=== PATIENT | female | born 1950 | race Caucasian/White ===

== ENCOUNTER → 2024-03-31 06:52 | Day surgery (SDC) | payer MEDICARE, OTHER, SELFPAY | LOC: CATH 06:52 | PROVIDERS: ATTENDING PHYSICIAN Internal Medicine; FAMILY PHYSICIAN Family Medicine; OTHER PHYSICIAN Internal Medicine Cardiovascular Disease | DX: I48.91 Unspecified atrial fibrillation (principal); Z53.09 Procedure and treatment not carried out because of other contraindication; I45.2 Bifascicular block; K21.9 Gastro-esophageal reflux disease without esophagitis; Z79.01 Long term (current) use of anticoagulants | CPT/HCPCS: 93005 ==

== ENCOUNTER → 2024-09-24 13:04 | Outpatient (REF) | payer MEDICARE, OTHER, SELFPAY | LOC: RCS 13:04 | PROVIDERS: ATTENDING PHYSICIAN Nurse Practitioner; FAMILY PHYSICIAN Family Medicine | DX: I48.0 Paroxysmal atrial fibrillation (principal); R60.0 Localized edema | CPT/HCPCS: 93306 ==

== ENCOUNTER 2024-09-30 06:03 | Day surgery (SDC) | payer MEDICARE, OTHER, SELFPAY ==
[2024-09-14 09:55] VITALS: BMI 33.5
--- NOTE | 2024-09-14 12:46 | W.PN.UPDATE ---
Update Note
Progress Note Update
PT elevated 19.7
on Xarelto
[2024-09-30] VITALS (14 sets, daily range): BP systolic 111–147; BP diastolic 61–84
[2024-09-30] MEDS: TYLENOL 1000 MG PO (07:00)
[2024-09-30 08:50] LABS: ACT-LR - POC 329 Seconds (116-155)
[2024-09-30 09:05] LABS: ACT-LR - POC 239 Seconds (116-155)
--- NOTE | 2024-09-30 10:00 | ITS.CL.ABL ---
Stenciler - Ablation
Ablation
Procedure Report:
ELECTROPHYSIOLOGY ABLATION STUDY
DATE:: September 30, 2024�����������������������REFERRING: Dr. Dr. Wily Purvis
INDICATION: Paroxysmal supraventricular tachycardia in the form of atrial fibrillation.��Some tracings also suggest right atrial flutter which had been persistent in the past although she presented in sinus rhythm with competing junctional
bradycardia today.
HISTORY: See H and P.��As above
ANTIARRHYTHMIC DRUG: History of Multaq use which was ineffective recently we have increased her Cardizem to 300 mg daily
PRE-PROCEDURE HERMINIO: No thrombus on intracardiac ultrasound
PRESENTING RHYTHM: Sinus bradycardia�junctional bradycardia
'TIME-OUT':��called and confirmed.
SEDATION/ANESTHESIA:��provided via the anesthesia department using general anesthesia (LMA).
INTRAVENOUS/ARTERIAL ACCESS:
Right femoral venous - 8Fr upgraded to fair drive sheath and ultimately upgraded to an 18 Luxembourgish short sheath to accommodate the 10 Luxembourgish steerable sheath for the CTI flutter
Left femoral venous - 8 Fr, 6 Fr
Ultrasound guidance for bilateral femoral vein access was utilized by me to obtain access with demonstration of normal anatomy
CHADS-VASC Score:
HAS-Bled Score
PROCEDURE:
1.��A decapolar CS catheter was placed within the CS for mapping and pacing.��This was also used as the reference catheter for the 3-D map. At the end of the procedure we performed CTI flutter with irrigated radiofrequency catheter tactic cath. At
30 W, 42 degrees and 15 to 20-second lesions under intracardiac ultrasound guidance at a 10 to 15 g force from the tricuspid valve back towards the IVC block was brought about at the back of the isthmus on the septal aspect with wide split doubles
and intra isthmus conduction time of 190 ms. This was performed after left atrial access and ablation as below.
2. The intracardiac ultrasound catheter was positioned in the RA to identify the FO for targeting of transseptal puncture, assist��in identification of the pulmonary vein ostia, monitoring pre and post ablation pulmonary vein flow velocities,
monitoring for 'bubble' formation during RF application as a sign of thermal injury,��and to monitor for pericardial effusion during mapping and ablation procedure.���Left atrial size, LV ejection fraction, and pulmonary vein flows were monitored
pre and post ablation procedure. The other valves were inspected and found to be free of significant regurgitation or stenosis. No pericardial effusion was seen pre and post procedure. Mild to moderate tricuspid regurgitation was noted which was
also noted on her echocardiogram last week.
3.��Half of the calculated heparin bolus was administered prior to the first transeptal puncture.��Transseptal puncture was performed to diagnose RA and LA pressure so that safety of LA mapping and ablation could be further assessed, and to access
the left atrium and pulmonary veins for mapping and ablation.��This entailed advancing an 18 Luxembourgish wire, sheath with dilator into the superior vena cava and withdrawing both (monitoring intracardiac ultrasound, fluoroscopy and tip pressure) with
the tip oriented toward the atrial septum.��The fossa ovalis was engaged (indicated by sudden displacement of the sheath tip as well as tenting of the fossa seen on intracardiac ultrasound).��Left atrial access required a pass with the [place]
needle extended.��Left atrial catheter position was confirmed by pressure monitoring (RA mean pressure 8 mm Hg and LA mean presure 14 mm Hg), LA saturation (99%),��as well as fluoroscopy.��The sheath was advanced over the dilator and positioned in
the left atrium.��This procedure was repeated for the Agilis sheath.��The remainder of the calculated heparin bolus was administered and heparin was
infused to maintain ACT at 300 -350 seconds throughout the case.
4.��RA pacing was performed via the proximal decapolar poles and LA pacing was performed via the distal decapolr poles.
5. A quadrapolar catheter was first positioned at the His position for His Bundle recording which was tagged via the 3-D Navex sytem, and then passed to the RVA for RV pacing and recording.
6. The ablation catheter was positioned through one of the transeptal seaths and a 20 pole ring mapping catheter was positioned through the second seath into the LA and then the ostia of the LIPV, LSPV, RSPV and the RIPV.��
7.��Next, a 3-D map was created using Navex.���A 3-D reconstructed CT image was compared to the 3-D Navex map to assist in anatomic interpretation, mapping and ablation.��The CT image and the NavX image were fused.
8. A total of 40 lesions were given in basket, all of and flower mode. The pulmonary veins were isolated at baseline. There was some signal on the posterior wall adi junction of the left veins. As such all of poses were given to the distal
adi of the left superior pulmonary vein and left inferior pulmonary vein. Otherwise the roof posterior wall floor and interatrial septum were addressed via flower pose. This rendered a wide area of isolation on the roof posterior wall floor
with some signal at the mitral valve annulus and we also recorded signal in the left atrial appendage at the end of procedure. We then performed atrial burst pacing down to 270 ms which was left atrial refractoriness inducing atrial fibrillation at
270 ms which did not organize and was cardioverted. Repeat conduction did not induce any other tachyarrhythmia. Given clinical ECG suggesting the possibility of CTI flutter we also performed CTI flutter ablation at the end of the procedure with a
4 mm radiofrequency catheter. The patient's right atrium was relatively small and we were unable to engage the isthmus directly in flower pose.
9. The patient had notable junctional bradycardia throughout the entirety of the procedure with occasional sinus beats. Of note she had recent increase in her Cardizem which we will lower post procedure. She had normal HV interval and was able to
conduct to the ventricle with right atrial pacing at less than 400 ms.
TOTAL FLOURO TIME: 21 minutes
TOTAL RF DURATION: 8 minutes
REVERSAL OF HEPARIN: 40 mg of protamine, slow IV administration
COMPLICATIONS:
None
Intracardiac US shows no pericardial effusion post ablation.
SUMMARY:��
Complex left atrial mapping and ablation.
Adi lesions were given to the left pulmonary veins and all of pose. Roof posterior wall and floor of the left atrium addressed in flower pose with isolation of all the structures. Additional substrate modified in the interatrial septum. CTI
flutter ablation with bidirectional block intra isthmus conduction time 190 ms which was performed with radiofrequency energy given small right atrial size
RECOMMENDATIONS:
1. Ambulate in 4 hours
2. Resume anticoagulation
3.��Lower diltiazem to 120 mg daily
4.��Consider same-day discharge
Copy to: Dr. Wily Purvis
[2024-09-30] MEDS: ANESTHETIC LOZENGE 1 LOZENGE PO (11:10)
--- NOTE | 2024-09-30 11:32 | PTCARENOTE ---
Patient states she has double vision. SALES FORCE DEVELOPER aware. Neuro check normal. VSS. By the time the SALES FORCE DEVELOPER was done assessing patient she stated her double vision went away. Will continue to monitor and patient aware to let us know if anything changes.
--- NOTE | 2024-09-30 14:26 | W.PN.UPDATE ---
Update Note
Progress Note Update
Pt seen post PFA. Bilat groin sites without ht/bleeding. OOB ambulating. Post EKG SB 55, no acute changes. Resume eliquis tonight at usual time. Bradycardia noted- will hold diltiazem tonight and resume tomorrow at decreased dose of 120mg daily.
Complained of double vision in the first hour after procedure, but no other neuro deficits. Neuro exam unremarkable. The double vision was self limiting and has not returned. She is oob now with steady gait. Followup at [facility] arranged and with
Yaniv thereafter. Home today if groin sites/tele remain stable.
== END 2024-09-30 15:00 | disposition home or self-care (01) ==
LOC: CATH 06:03
PROVIDERS: ATTENDING PHYSICIAN Internal Medicine Cardiovascular Disease; FAMILY PHYSICIAN Family Medicine; OTHER PHYSICIAN Internal Medicine Cardiovascular Disease
DX: I48.0 Paroxysmal atrial fibrillation (principal); I48.92 Unspecified atrial flutter; I10 Essential (primary) hypertension; F32.A Depression, unspecified; F41.9 Anxiety disorder, unspecified; G47.33 Obstructive sleep apnea (adult) (pediatric); Z79.899 Other long term (current) drug therapy; Z88.0 Allergy status to penicillin; Z79.01 Long term (current) use of anticoagulants
CPT/HCPCS: C1732; C1894; C2630; C1892; C1759; C1730; 76937; 85347; 93005; 93655; 93656; 93657; C1733; C1766

== ENCOUNTER 2025-02-15 10:23 | Day surgery (SDC) | payer MEDICARE, OTHER, SELFPAY ==
--- NOTE | 2025-02-15 12:10 | ITS.CL.CARDI ---
Handy Worker - Cardioversion
Cardioversion
Procedure Report:
Date of Procedure: February 15 2025
Procedure: Cardioversion
Indication: Symptomatic atrial flutter
Performing Physician: Demarco Thomas DO, FACC
Technique: The patient was brought to the holding area. Signed informed consent was obtained. A time out was called and performed. The patient was anesthetized by the anesthesia service. Anticoagulation status was reviewed and appropriate. R2 pads
were placed anteriorly and posteriorly. A 200 J synchronized biphasic shock restored normal sinus rhythm with short pause and sinus bradycardia. There were no complications.
Conclusion: Uncomplicated cardioversion from atrial flutter to sinus rhythm.
Recommendation: Routine post cardioversion care. Continue skilled nursing anticoagulation.
== END 2025-02-15 12:29 | disposition home or self-care (01) ==
LOC: CATH 10:23
PROVIDERS: ATTENDING PHYSICIAN Nuclear Medicine Nuclear Cardiology; FAMILY PHYSICIAN Family Medicine; REFERRING PHYSICIAN Internal Medicine Cardiovascular Disease
DX: I48.92 Unspecified atrial flutter (principal); I48.0 Paroxysmal atrial fibrillation; I45.10 Unspecified right bundle-branch block; I10 Essential (primary) hypertension; E78.00 Pure hypercholesterolemia, unspecified; G47.33 Obstructive sleep apnea (adult) (pediatric); R60.0 Localized edema; Z82.49 Family history of ischemic heart disease and other diseases of the circulatory system; Z79.01 Long term (current) use of anticoagulants
CPT/HCPCS: 92960; 93005

== ENCOUNTER 2025-05-12 07:22 | Day surgery (SDC) | payer MEDICARE, OTHER, SELFPAY ==
[2025-05-12] MEDS: ELIQUIS 5 MG PO (10:45)
--- NOTE | 2025-05-12 11:23 | ITS.CL.CARDI ---
Tow Operator - Cardioversion
Cardioversion
Procedure Report:
Date of Procedure: 05/12/2023.
Procedure: Cardioversion.
Indication: Symptomatic persistent atrial flutter
Performing Physician: Beverley Moreau MD
Technique: The patient was brought to the holding area. Signed informed consent was obtained. A time out was called and performed. The patient was sedated by a member of the anesthesia service. Anticoagulation status was reviewed. Given she was
taking her Eliquis incorrectly for several day at only once a day, HERMINIO was done to rule out evidence of LA/JOSE/RA and RAA. R-2 pads were placed anteriorly and posteriorly. A 200J synchronized biphasic shock restored normal sinus rhythm without
significant bradycardia. There were no complications.
Conclusion: Uncomplicated cardioversion from atrial flutter to sinus rhythm.
Recommendation: Routine post cardioversion care. Continue nursing home anticoagulation. Reviewed with the patient and her family the correct dosing of Eliquis is 5 mg p.o. twice a day.
cc: Dr Purvis
== END 2025-05-12 11:11 | disposition home or self-care (01) ==
LOC: CATH 07:22
PROVIDERS: ATTENDING PHYSICIAN Internal Medicine Cardiovascular Disease; FAMILY PHYSICIAN Family Medicine
DX: I48.19 Other persistent atrial fibrillation (principal); Z79.01 Long term (current) use of anticoagulants; I08.1 Rheumatic disorders of both mitral and tricuspid valves; I48.92 Unspecified atrial flutter; G47.33 Obstructive sleep apnea (adult) (pediatric)
CPT/HCPCS: 93312; 93320; 93325; 92960; 93005

== ENCOUNTER 2025-06-07 07:58 | Inpatient (IN) | payer MEDICARE, OTHER, SELFPAY ==
[2025-06-07 08:35] VITALS: BMI 33.9
[2025-06-07 08:52] LABS: Hematocrit 42.7 % (37.0-47.0); Hemoglobin 14.5 g/dL (12.0-16.0); Mean Corp Hgb Conc. 34.0 g/dL (33.0-37.0); Mean Corpuscular Volume 93.2 fL (81.0-99.0); Platelet Count 277 10^3/uL (130-400); Red Cell Dist. Width 13.4 % (11.5-14.5)
[2025-06-07 09:21] VITALS: BMI 33.9
--- NOTE | 2025-06-07 09:23 | PTCARENOTE ---
Pt received as a direct admit for Tikosyn loading. Pt in atrial tach, rate in the 100'2 to 120's. Room air , sat 99%. Denies any pain, sob or palpitations at this time. Pt states she occasionally feels palpitations.
[2025-06-07 10:25] LABS: TSH 1.77 uIU/ml (0.47-4.68)
--- NOTE | 2025-06-07 10:29 | W.PN.CARDCBS ---
Addendum entered and electronically signed by Osiel Ricci MD 06/07/25 12:18:
I saw and examined the patient.
The SCOURING MACHINE TENDER or PA's note was reviewed and I agree with the note.
Comment: General: Well developed, well nourished in NAD.
Neck: Supple, no JVD, HJR, carotids +2 B/L, no bruits bilaterally.
Heart: Non displaced PMI, regular, tachycardic, no murmurs, No S3, S4, no rubs.
Lungs: Clear to auscultation bilaterally, no wheeze, rhonchi, rubs bilaterally,
normal expiratory phase.
Abdomen: Normal bowel sounds, soft, non-tender, non-distended.
Extremities: No clubbing, cyanosis or edema bilaterally.
Neuro: Grossly nonfocal, awake, alert and oriented x3.
Jennifer has a history of A-fib status post PVI who presents for Tikosyn initiation. She also has a history of hypertension, hypercholesterolemia, sleep apnea. She is in atrial tachycardia present. Will load with Tikosyn. If remains in atrial
tachycardia we will plan on cardioversion on 06/09. Discussed with patient and in detail as well as nursing.
Original Note:
Today's Communication / Plan
-
Start Tikosyn 250 mcg twice daily
QTc monitoring
Impression / Plan
-
PCP: Brayan Mitchell
Primary debubblizer: Wily Purvis
Primary guidance services coordinator: Bridger Cevallos MD
See cardiology office note from 05/26/2025 for full history
Impression:
Atypical atrial flutter
- Status post PVI cryo 11/2012
- Status post PVI/LA PW isolation with PFA/CTI flutter with RF 09/30/2024
- Previously on sotalol, developed rash
- Previously on Multaq, started 2021, stopped 05/26/2025
- Status post HERMINIO/cardioversion 05/12/2025
- Anticoagulated with Eliquis 5 mg twice daily, no missed doses
Hypertension
Chronic anticoagulation
Hypercholesterolemia sleep apnea
Vertigo
Obstructive sleep apnea, intolerant of CPAP mask
Mucous membrane pemphigoid
Previous cardiovascular studies:
HERMINIO 05/12/2025: Normal biventricular size and systolic function without regional wall motion abnormalities, EF 60 to 65%, no significant valvular heart disease, no evidence of spontaneous echo contrast or thrombus in the JOSE/JOSE/right atrium or
right atrial appendage
Plan:
Atypical atrial flutter
-Previously on Multaq, stopped 05/26/2025
-Presents for Tikosyn loading with plan to use 250 mcg twice daily dosing
-calc creat clearance 116.4
-K 4.4, Mag 2.2
-baseline QTc 513 msec, in setting of RBBB and atrial tachycardia. Starting pt on lower dose of Tikosyn at 250 mcg bid (per creat clearance should be on 500 mcg bid) with close QTc monitoring.
-Has been on diltiazem 120 mg twice daily and home setting. Will reduce to once a day with initiation of Tikosyn
-Continue uninterrupted oral anticoagulation with Eliquis 5 mg twice daily
-daily labs
Progress Note - Creative Services Specialist
Subjective
Date of Service: June 07, 2025
Presents for initiation of Tikosyn for atypical atrial flutter
Complains of palpitations and fatigue with aflutter
Objective
Labs:
06/07/25 08:38
Labs
Hgb 14.5 g/dL (12.0-16.0) 06/07/25 08:38
Hct 42.7 % (37.0-47.0) 06/07/25 08:38
Plt Count 277 10^3/uL (130-400) 06/07/25 08:38
Sodium Cancelled 06/07/25 08:38
Potassium Cancelled 06/07/25 08:38
BUN Cancelled 06/07/25 08:38
Creatinine Cancelled 06/07/25 08:38
Glucose Cancelled 06/07/25 08:38
Vital Signs and I&O:
Vital Signs
Temp Pulse Resp Pulse Ox
98.3 F 119 18 99
06/07/25 08:34 06/07/25 08:34 06/07/25 08:34 06/07/25 08:34
Vital Signs
Temp Pulse Resp Pulse Ox
98.3 F 119 18 99
06/07/25 08:34 06/07/25 08:34 06/07/25 08:34 06/07/25 08:34
Physical Exam
Physical Exam
GEN: No distress, awake, Ox3
HEENT: supple, anicteric, mmm
LUNGS: CTA, no wheezes/rales
CV: Tachycardic, regular, no murmur
ABD: soft, BS+, NT/ND
EXT: No edema
NEURO: Gross non-focal
SKIN: No rash
[2025-06-07 11:18] LABS: ALT (SGPT) 20 U/L (0-35); AST (SGOT) 27 U/L (14-36); Albumin 4.3 g/dl (3.5-5.0); Alkaline Phosphatase 113 U/L (38-126); Blood Urea Nitrogen 14 mg/dl (7-17); Calcium 9.6 mg/dl (8.4-10.2); Carbon Dioxide 30 mmol/L (22-30); Chloride 104 mmol/L (98-107); Estimated Creatinine Clearance 74 ml/min; Glucose 89 mg/dl (70-99); Magnesium 2.2 mg/dl (1.6-2.3); Potassium 4.4 mmol/L (3.5-5.1); Sodium 137 mmol/L (135-145); Total Protein 7.8 g/dl (6.3-8.2); eGFR > 60.00
--- NOTE | 2025-06-07 11:47 | W.CARD.TIKOS ---
Initiate Tikosyn
-
I verify that the patient has not taken any verapamil (Isoptin/Calan), ketoconazole (Nizoral), cimetidine (Tagamet), trimethoprim (Trimpex), trimethoprim/sulfamethoxazole (Bactrim), megesterol (Megace), prochlorperazine (Compazine),
hydrochlorothiazide (HCTZ), dolutegravir (Tivicay) or any Class I or Class III anti-arrhythmic within the last three days
AND
I verify that the patient has not taken amiodarone within the last THREE months, or that the patient's amiodarone plasma concentration is <0.3 mcg/mL.
Creatinine 0.6 mg/dL (0.6-1.0) 06/07/25 10:36
Estimated Creat Clear 74 ml/min 06/07/25 10:36
Calculated creatinine clearance: 116.4
Does patient have a Ventricular Conduction Abnormality: Yes
I have assessed the baseline QTc interval (using QT for heart rate less than 60 bpm) and deemed the patient is appropriate for Dofetilide therapy. I understand that Tikosyn is contraindicated if the QTc is >440msec (500msec in patients with
ventricular conduction abnormalities).
Baseline QTc 513 msec in setting of right bundle branch block and atrial tachycardia. We will be starting patient on lower dose Tikosyn 250 mcg twice daily with close QTc monitoring.
Baseline QTc (in msec): 513
QTc interval is greater than 440msec without conduction abnormality OR greater than 500msec with a conduction abnormality, but acceptable to proceed per Cardiology attending.
Reason for Administration with Prolonged QTc: Bundle Branch Block
Ordering Physician: Osiel Ricci
--- NOTE | 2025-06-07 12:05 | CM ---
Chart reviewed. Patient is independent of ADLS, lives with her and 2 sons in a 2 STH, 1 GIULIA, 0 DME. Plan is for the patient to return home. CM to follow
[2025-06-07 12:06] VITALS: BP 139/83
--- NOTE | 2025-06-07 12:08 | CM ---
Pricing on Dofetilide 250 mcq BID is covered at a $0 copay. CM to follow up on dosage and availability on day of discharge. Patient will need a 3 day supply on day of discharge.
[2025-06-07] MEDS: TIKOSYN 250 MCG PO ×2 (12:15→23:27)
[2025-06-07 15:49] VITALS: BP 141/85
[2025-06-07 19:36] VITALS: BP 134/99
[2025-06-07] MEDS: ELIQUIS 5 MG PO (19:48)
[2025-06-07 23:26] VITALS: BP 134/89
--- NOTE | 2025-06-07 23:53 | PTCARENOTE ---
Received patient at change of shift. Atrial tachycardia with a BBB on the monitor, HR in the 100s. Tikosyn administered and EKG ordered as per protocol. No complaints from pt at this time, call celestin within reach.
[2025-06-08] VITALS (7 sets, daily range): BP systolic 114–155; BP diastolic 64–99
[2025-06-08 02:10] LABS: Blood Urea Nitrogen 12 mg/dl (7-17); Calcium 9.3 mg/dl (8.4-10.2); Carbon Dioxide 28 mmol/L (22-30); Chloride 108 mmol/L (98-107); Estimated Creatinine Clearance 63 ml/min; Glucose 99 mg/dl (70-99); Magnesium 2.1 mg/dl (1.6-2.3); Potassium 4.4 mmol/L (3.5-5.1); Sodium 139 mmol/L (135-145); eGFR > 60.00
[2025-06-08] MEDS: MELATONIN 5 MG PO ×2 (02:28→23:01)
--- NOTE | 2025-06-08 07:47 | W.PN.CARDCBS ---
Addendum entered and electronically signed by Osiel Ricci MD 06/08/25 08:45:
I saw and examined the patient.
The PROOF INSPECTOR or PA's note was reviewed and I agree with the note.
Comment: General: Well developed, well nourished in NAD.
Neck: Supple, no JVD, HJR, carotids +2 B/L, no bruits bilaterally.
Heart: Non displaced PMI, RRR, no murmurs, No S3, S4, no rubs.
Lungs: Scattered rhonchi
Extremities: No clubbing, cyanosis or edema bilaterally.
Neuro: Grossly nonfocal, awake, alert and oriented x3.
She has converted to sinus rhythm. QT interval okay. Continue Tikosyn loading. Discharge 06/09 after fifth dose in AM.
Original Note:
Today's Communication / Plan
-
continue tikosyn 250mcg Q12H
follow QTc
in SR/SB
continue eliquis, reduced dose cardizem
Impression / Plan
-
PCP: Brayan Mitchell
Primary animal husbandry professor: Wily Purvis
Primary pharmacy aide: Bridger Cevallos MD
See cardiology office note from 05/26/2025 for full history
Impression:
Atypical atrial flutter
- Status post PVI cryo 11/2012
- Status post PVI/LA PW isolation with PFA/CTI flutter with RF 09/30/2024
- Previously on sotalol, developed rash
- Previously on Multaq, started 2021, stopped 05/26/2025
- Status post HERMINIO/cardioversion 05/12/2025
- Anticoagulated with Eliquis 5 mg twice daily, no missed doses
Hypertension
Chronic anticoagulation
Hypercholesterolemia sleep apnea
Vertigo
Obstructive sleep apnea, intolerant of CPAP mask
Mucous membrane pemphigoid
Previous cardiovascular studies:
HERMINIO 05/12/2025: Normal biventricular size and systolic function without regional wall motion abnormalities, EF 60 to 65%, no significant valvular heart disease, no evidence of spontaneous echo contrast or thrombus in the JOSE/JOSE/right atrium or
right atrial appendage
Plan:
-Previously on Multaq, stopped 05/26/2025 in preparation for washout for tikosyn loading, admitted 06/07/25
-tolerating 250mcg Q12H. converted to SR/SB around 6:45AM 06/08. follow QTc
-cardizem cd reduced this admission to 120mg daily from BID this admission. follow HRs
-Continue uninterrupted oral anticoagulation with Eliquis 5 mg twice daily
Progress Note - Dietitian Helper
Subjective
Date of Service: June 08, 2025
feeling well. no current palpitations
Objective
Labs:
06/07/25 08:38
06/08/25 01:44
Labs
Hgb 14.5 g/dL (12.0-16.0) 06/07/25 08:38
Hct 42.7 % (37.0-47.0) 06/07/25 08:38
Plt Count 277 10^3/uL (130-400) 06/07/25 08:38
Sodium 139 mmol/L (135-145) 06/08/25 01:44
Potassium 4.4 mmol/L (3.5-5.1) 06/08/25 01:44
BUN 12 mg/dl (7-17) 06/08/25 01:44
Creatinine 0.7 mg/dL (0.6-1.0) 06/08/25 01:44
Glucose 99 mg/dl (70-99) 06/08/25 01:44
Vital Signs and I&O:
Vital Signs
Temp Pulse Resp BP Pulse Ox
98.1 F 101 18 155/99 96
06/08/25 01:46 06/08/25 05:00 06/08/25 01:46 06/08/25 01:41 06/08/25 01:46
Vital Signs
Temp Pulse Resp BP Pulse Ox
98.1 F 101 18 155/99 96
06/08/25 01:46 06/08/25 05:00 06/08/25 01:46 06/08/25 01:41 06/08/25 01:46
Physical Exam
Physical Exam
GEN: No distress, awake, alert, oriented x3
HEENT: supple, anicteric, mmm, eomi
LUNGS: CTA B/L, no wheezes/rales
CV: Reg and john, S1/S2, no murmur
ABD: soft, BS+
EXT: No cyanosis, clubbing, edema
NEURO: Gross non-focal
SKIN: Warm, pink, dry. No rash
[2025-06-08] MEDS: ELIQUIS 5 MG PO ×2 (08:08→19:56)
[2025-06-08] MEDS: CYMBALTA DELAYED RELEASE 60 MG PO (08:08)
[2025-06-08] MEDS: CARDIZEM CD 120 MG PO (08:08)
[2025-06-08] MEDS: TIKOSYN 250 MCG PO ×2 (10:03→21:01)
--- NOTE | 2025-06-08 10:29 | CM ---
Chart reviewed. Patient is independent of ADLS, lives wit her and 2 sons in a 2 STH, 1 GIULIA, 0 DME. Patient currently in NSR and tolerating Dofetilide 250 mcq. CM to check on dosage and availability at discharge.
--- NOTE | 2025-06-08 13:39 | PTCARENOTE ---
Patient received at 0700. AO x3. NSR in HR 62. Tikosyn dose #3 given at 1000. EKG @ 1200 done (QTC 497). Denies pain or shortness of breath. VSS, Call celestin in reach
--- NOTE | 2025-06-08 23:10 | PTCARENOTE ---
Received patient at change of shift. SR with a BBB on the monitor, HR in the 60s. Tikosyn administered, EKG ordered as per protocol. No complaints from pt at this time, call celestin within reach.
[2025-06-09 03:58] VITALS: BP 143/72
[2025-06-09 05:00] LABS: Blood Urea Nitrogen 16 mg/dl (7-17); Calcium 9.0 mg/dl (8.4-10.2); Carbon Dioxide 29 mmol/L (22-30); Chloride 106 mmol/L (98-107); Estimated Creatinine Clearance 63 ml/min; Glucose 97 mg/dl (70-99); Magnesium 2.1 mg/dl (1.6-2.3); Potassium 4.3 mmol/L (3.5-5.1); Sodium 136 mmol/L (135-145); eGFR > 60.00
[2025-06-09 07:24] VITALS: BP 145/86
--- NOTE | 2025-06-09 07:50 | W.PN.CARDCBS ---
Addendum entered and electronically signed by Mati Birmingham MD 06/09/25 14:08:
I saw and examined the patient.
The Program Eligibility Specialist's note was reviewed and I agree with the note.
Comment: Briefly, 74-year-old woman past medical history of persistent atrial fibrillation with multiple prior ablations who presents for Tikosyn loading
Patient was started on Tikosyn 250 mcg every 12 and spontaneously converted to sinus rhythm while here
QTc has remained stable by my review of ECGs
Plan to switch standing diltiazem to as needed for palpitations and elevated heart rate due to bradycardia observed here
Continue Eliquis for risk reduction of cardioembolic stroke
Stable for discharge from my perspective, close outpatient follow-up has been arranged
Addendum entered and electronically signed by Crystal Shah PA-C 06/09/25 11:08:
[id number]
Original Note:
Today's Communication / Plan
-
follow QTc
continue tikosyn 250mcg Q12H
plan for DC today
OP EP follow up arranged
Impression / Plan
-
PCP: Brayan Mitchell
Primary soup mixer: Wily Purvis
Primary business performance analyst: Bridger Cevallos MD
See cardiology office note from 05/26/2025 for full history
Impression:
Atypical atrial flutter
- Status post PVI cryo 11/2012
- Status post PVI/LA PW isolation with PFA/CTI flutter with RF 09/30/2024
- Previously on sotalol, developed rash
- Previously on Multaq, started 2021, stopped 05/26/2025
- Status post HERMINIO/cardioversion 05/12/2025
- Anticoagulated with Eliquis 5 mg twice daily, no missed doses
Hypertension
Chronic anticoagulation
Hypercholesterolemia sleep apnea
Vertigo
Obstructive sleep apnea, intolerant of CPAP mask
Mucous membrane pemphigoid
Previous cardiovascular studies:
HERMINIO 05/12/2025: Normal biventricular size and systolic function without regional wall motion abnormalities, EF 60 to 65%, no significant valvular heart disease, no evidence of spontaneous echo contrast or thrombus in the JOSE/JOSE/right atrium or
right atrial appendage
Plan:
-Previously on Multaq, stopped 05/26/2025 in preparation for washout for tikosyn loading, admitted 06/07/25
-tolerating 250mcg Q12H. converted to SR/SB around 6:45AM 06/08. follow QTc by EKG, suspect most recent QTc overestimated when manually calculated felt to be ~500ms
-cardizem cd reduced further to PRN for palpitations or HR elevation
-Continue uninterrupted oral anticoagulation with Eliquis 5 mg twice daily
-OP follow up with EP arranged
-plan for DC to home today
-d/w nursing
Progress Note - Power Supply Engineer
Subjective
Date of Service: June 09, 2025
no issues overnight
Objective
Labs:
06/07/25 08:38
06/09/25 04:02
Labs
Hgb 14.5 g/dL (12.0-16.0) 06/07/25 08:38
Hct 42.7 % (37.0-47.0) 06/07/25 08:38
Plt Count 277 10^3/uL (130-400) 06/07/25 08:38
Sodium 136 mmol/L (135-145) 06/09/25 04:02
Potassium 4.3 mmol/L (3.5-5.1) 06/09/25 04:02
BUN 16 mg/dl (7-17) 06/09/25 04:02
Creatinine 0.7 mg/dL (0.6-1.0) 06/09/25 04:02
Glucose 97 mg/dl (70-99) 06/09/25 04:02
Vital Signs and I&O:
Vital Signs
Temp Pulse Resp BP Pulse Ox
97.7 F 58 20 143/72 96
06/09/25 07:24 06/09/25 06:15 06/09/25 07:24 06/09/25 03:58 06/09/25 07:24
Vital Signs
Temp Pulse Resp BP Pulse Ox
97.7 F 58 20 143/72 96
06/09/25 07:24 06/09/25 06:15 06/09/25 07:24 06/09/25 03:58 06/09/25 07:24
Physical Exam
Physical Exam
GEN: No distress, awake, alert, oriented x3
HEENT: supple, anicteric, mmm, eomi
LUNGS: CTA B/L, no wheezes/rales
CV: Reg and john, S1/S2, no murmur
ABD: soft, BS+
EXT: No cyanosis, clubbing, edema
NEURO: Gross non-focal
SKIN: Warm, pink, dry. No rash
[2025-06-09] MEDS: ELIQUIS 5 MG PO (08:06)
[2025-06-09] MEDS: TIKOSYN 250 MCG PO (08:06)
[2025-06-09] MEDS: CYMBALTA DELAYED RELEASE 60 MG PO (08:06)
[2025-06-09] MEDS: CARDIZEM CD 120 MG PO (08:06)
--- NOTE | 2025-06-09 10:27 | CM ---
Chart reviewed. Patient's Dofetilide 250 mcq in stock at the patient's [facility]. Patient will need a 3 day supply at discharge. Patient is independent of ADLS, lives with her and 2 sons, 2 STH, 1 GIULIA, 0 DME. Plan is for the patient
to return home. CM to follow
--- NOTE | 2025-06-09 10:31 | W.DS.TRANS ---
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
-
Discharge Instructions:
Discharge Diagnosis/Procedures tikosyn loading
Diet Regular
Activity As tolerated
Driving Restrictions As prior to admission
Bathing Restrictions None
Instructions:
Stand-Alone Forms:
Changes to Home Medications: Yes
Discharge Medications:
DC Medications w/original date entered in [employer]
acetaminophen 650 mg tablet,extended release 650 mg PO PRN PRN arthritis 02/15/25
apixaban 5 mg tablet (Eliquis) 5 mg PO BID Blood Clot Prevention/Tx 02/15/25
duloxetine 60 mg capsule,delayed release 60 mg PO DAILY Mental Health/Anxiety 06/07/25
diltiazem HCl 120 mg capsule,extended release 24 hr 120 mg PO DAILYPRN PRN HR>90 #1 cap 06/09/25
dofetilide 250 mcg capsule (Tikosyn) 250 mcg PO Q12H #60 caps 06/09/25
Home Medication Changes
tikosyn is new
diltiazem changed to PRN HR>90 or palps
Pending Results: No
[2025-06-09 11:06] VITALS: BP 143/73
--- NOTE | 2025-06-09 11:38 | PTCARENOTE ---
~1324-2956: Handoff report received from nightshift RN. Pt Aox4, NSR BBB 60s on tele, SBP 140s, RA satting 95%. Pt c/o slight headache however does not want anything at this time. Skin intact and independent in room. Dose #5 tikosyn given per order
and EKG obtained. All needs met at this time, call celestin within reach.
~[id number]: Script for tikosyn sent to [facility] pharmacy to get a few doses while waiting for patient pharmacy to get the medication. DC orders in. Tele and PIV removed from patient and patient got dressed. VSS at this time. DC paperwork reviewed and
all questions answered.
== END 2025-06-09 11:38 | disposition home or self-care (01) | DRG 309 ==
LOC: IVU 07:58
PROVIDERS: Nurse Practitioner; ADMITTING PHYSICIAN Internal Medicine Cardiovascular Disease
DX: I48.4 Atypical atrial flutter (principal); L12.9 Pemphigoid, unspecified; I10 Essential (primary) hypertension; Z79.01 Long term (current) use of anticoagulants; E78.00 Pure hypercholesterolemia, unspecified; G47.33 Obstructive sleep apnea (adult) (pediatric)
CPT/HCPCS: 80048; 80053; 83735; 84443; 85027; 93005